=== PATIENT | female | born 1955 | race Caucasian/White ===

== ENCOUNTER → 2018-02-20 10:12 | Outpatient (CLI) | payer BC, SELFPAY ==
[2018-02-20 10:58] LABS: Add Manual Diff / Slide Review NO; Basophils Percent Auto 0.8 % (0-2); Hematocrit 42.9 % (36-46); Hemoglobin 14.4 g/dL (12.0-16.0); Lymphocytes Percent Auto 39.5 % (25-40); Mean Corpuscular HGB Conc 33.6 % (30-36); Mean Corpuscular Hemoglobin 28.9 PG (26-34); Mean Corpuscular Volume 86.2 fL (80-100); Monocytes Percent Auto 12.4 % (3-14); Neutrophils Absolute Auto 1700 /uL (3000-5900); Neutrophils Percent Auto 43.3 % (50-75); Platelet Count 208 X10^3/uL (150-400); Red Blood Cell Count 4.98 X10^6/uL (4.0-5.2); Red Cell Distribution Width 14.2 % (11.6-14.8)
[2018-02-20 11:23] LABS: Alanine Aminotransferase 30 IU/L (9-52); Albumin 4.1 g/dL (3.5-5.0); Albumin Globulin Ratio 1.3 (1.0-2.8); Alkaline Phosphatase 105 U/L (38-126); Aspartate Aminotransferase 26 IU/L (14-36); BUN Creatinine Ratio 33.3 (6-22); Bilirubin Total 1.6 mg/dL (0.2-1.3); Blood Urea Nitrogen 20 mg/dL (7-17); Calcium 9.8 mg/dL (8.4-10.2); Carbon Dioxide 28 mmol/L (22-32); Chloride 102 mmol/L (98-107); Estimated Glomerular Filt Rate > 60.0 mL/min (>60); Globulin 3.1 g/dL (1.7-4.1); Glucose 90 mg/dL (80-110); HEMOLYSIS < 15 (0-50); Potassium 4.6 mmol/L (3.4-5.1); Sodium 141 mmol/L (137-145); Total Protein 7.2 g/dL (6.3-8.2)
== END ==
PROVIDERS: PCP Family Medicine; Visit Provider Family Medicine
DX: K52.9 Noninfective gastroenteritis and colitis, unspecified (principal)
CPT/HCPCS: 36415; 80053; 85025

== ENCOUNTER → 2018-03-05 07:32 | Outpatient (CLI) | payer BC, SELFPAY ==
--- NOTE | 2018-03-05 07:34 | DI.US.S_ITS ---
PROCEDURE: US ABDOMEN COMPLETE INDICATIONS: DIARRHEA TECHNIQUE: Real-time scanning was performed of the abdominal and retroperitoneal organs, with image documentation. COMPARISON: None. FINDINGS: Liver: Liver is normal in size and homogeneous in echotexture. 2 hepatic cysts present largest measuring 2.1 cm. Gallbladder: No gallstones identified. Normal gallbladder wall. No pericholecystic fluid. Negative sonographic Vasquez sign. Biliary ducts: Intrahepatic bile ducts are non-dilated. Extrahepatic bile duct caliber measures 3.9 mm. Normal is 6-7 mm or less in diameter, or 10 mm or less post-cholecystectomy. Pancreas: Visualized portions of the pancreas are sonographically normal. Spleen: Spleen is normal in size and homogeneous in echotexture. Kidneys: Kidneys are normal in size and echotexture. Right kidney measures 10.3 cm long; left kidney measures 10.7 cm long. No hydronephrosis or nephrolithiasis. No solid masses. Aorta: Visualized aorta is normal in caliber at less than 3 cm. Iliacs: Proximal common iliac arteries are normal in caliber at less than 2.5 cm. IVC: Intrahepatic inferior vena cava is patent. Miscellaneous: No free abdominal fluid. IMPRESSION: 1. Simple hepatic cysts. No source for diarrhea identified sonographically. Dictated by: Jose Bolden [facility] Interpreted: Sonia Feliciano MD on 03/05/2018 at 8:34 Approved by: Sonia Feliciano M.D. on 03/05/2018 at 10:44
== END ==
PROVIDERS: PCP Family Medicine; Visit Provider Family Medicine
DX: R19.7 Diarrhea, unspecified (principal); K76.9 Liver disease, unspecified
CPT/HCPCS: 76700

== ENCOUNTER → 2018-03-29 14:43 | Outpatient (CLI) | payer BC, SELFPAY ==
--- NOTE | 2018-03-29 14:46 | DI.MG.S_ITS ---
BILATERAL DIGITAL SCREENING MAMMOGRAM 3D/2D WITH CAD: 03/29/2018 CLINICAL: Routine screening. Family history of breast cancer. Comparison is made to exams dated: 04/16/2015 mammogram, 02/20/2014 mammogram, and 02/06/2013 mammogram - [facility]. There are scattered fibroglandular elements in both breasts. Current study was also evaluated with a Computer Aided Detection (CAD) system. There is an asymmetry in the right breast posterior depth central to the nipple seen on the mediolateral oblique view only. There is an asymmetry in the left breast middle depth central to the nipple seen on the craniocaudal view only. No other significant masses or calcifications are seen in either breast. IMPRESSION: INCOMPLETE: NEEDS ADDITIONAL IMAGING EVALUATION The asymmetry in the right breast posterior depth central to the nipple seen on the mediolateral oblique view only is indeterminate. Additional views with possible ultrasound are recommended. The asymmetry in the left breast middle depth central to the nipple seen on the craniocaudal view only is indeterminate. Additional views with possible ultrasound are recommended. This exam was interpreted at Station ID: [id number]. NOTE: For mammograms, a report in lay terms will be sent to the patient. Approximately 15% of breast malignancies will not be visualized mammographically. In the management of a palpable breast mass, a negative mammogram must not discourage biopsy of a clinically suspicious lesion. Electronically Signed By: Bel rodriguez/radha:03/29/2018 17:16:55 letter sent: Additional Imaging Needed ACR BI-RADS Category 0: Incomplete 3340F
== END ==
PROVIDERS: PCP Family Medicine; Visit Provider Family Medicine
DX: Z12.31 Encounter for screening mammogram for malignant neoplasm of breast (principal); Z80.3 Family history of malignant neoplasm of breast
CPT/HCPCS: 77063; 77067

== ENCOUNTER → 2018-04-11 12:35 | Outpatient (CLI) | payer BC, SELFPAY ==
--- NOTE | 2018-04-11 12:39 | DI.US.S_ITS ---
ULTRASOUND OF LEFT BREAST: 04/11/2018 CLINICAL: Patient returns today to evaluate a density in the left breast. Comparison is made to exams dated: 04/11/2018 mammogram, 03/29/2018 mammogram - [facility], 04/16/2015 mammogram, and 02/20/2014 mammogram - [facility]. Color flow ultrasound of the left breast was performed. Marr scale images of the real-time examination were reviewed. Prior mammographic finding is no longer seen left breast. IMPRESSION: NEGATIVE There is no sonographic evidence of malignancy. A 1 year screening mammogram is recommended. This exam was interpreted at Station ID: [id number]. Electronically Signed By: Guy abdullahi/radha:04/11/2018 15:59:41 letter sent: Normal Exam Ultrasound BI-RADS: 1 Negative
--- NOTE | 2018-04-11 12:39 | DI.US.S_ITS ---
ULTRASOUND OF RIGHT BREAST: 04/11/2018 CLINICAL: Patient returns today to evaluate a density in the right breast. Comparison is made to exams dated: 04/11/2018 mammogram, 03/29/2018 mammogram - [facility], 04/16/2015 mammogram, and 02/20/2014 mammogram - [facility]. Color flow ultrasound of the right breast was performed. Marr scale images of the real-time examination were reviewed. There is a benign 7 mm cyst in the right breast at 7 o'clock posterior depth. This correlates with mammography findings. IMPRESSION: BENIGN There is no sonographic evidence of malignancy. The 7 mm cyst in the right breast is benign. A 1 year screening mammogram is recommended. This exam was interpreted at Station ID: [id number]. Electronically Signed By: Guy abdullahi/radha:04/11/2018 16:00:24 Ultrasound BI-RADS: 2 Benign
--- NOTE | 2018-04-11 12:39 | DI.MG.S_ITS ---
BILATERAL DIGITAL DIAGNOSTIC MAMMOGRAM 3D/2D WITH ADDITIONAL VIEWS: 04/11/2018 CLINICAL: Additional evaluation requested from prior study. Comparison is made to exams dated: 03/29/2018 mammogram - [facility], 04/16/2015 mammogram, and 02/20/2014 mammogram - [facility]. There are scattered fibroglandular elements in both breasts. Prior mammographic finding is no longer seen in the left breast. There is a 6 mm oval low density mass with a circumscribed margin in the right breast at 6 o'clock posterior depth. No other significant masses, calcifications, or other findings are seen in either breast. IMPRESSION: INCOMPLETE: NEEDS ADDITIONAL IMAGING EVALUATION The 6 mm oval low density mass in the right breast is indeterminate. Questioned left breast finding resolves. However, recommend ultrasound for further evaluation of this site as well as the right breast mass. This exam was interpreted at Station ID: [id number]. NOTE: For mammograms, a report in lay terms will be sent to the patient. Approximately 15% of breast malignancies will not be visualized mammographically. In the management of a palpable breast mass, a negative mammogram must not discourage biopsy of a clinically suspicious lesion. Electronically Signed By: Guy Navarrete M.D. cj/:04/11/2018 15:59:06 ACR BI-RADS Category 0: Incomplete 3340F
== END ==
PROVIDERS: PCP Family Medicine; Visit Provider Family Medicine
DX: R92.8 Other abnormal and inconclusive findings on diagnostic imaging of breast (principal); N60.01 Solitary cyst of right breast
CPT/HCPCS: 76642; 77066; G0279

== ENCOUNTER 2018-05-16 06:45 | Day surgery (SDC) | payer BC, SELFPAY ==
--- NOTE | 2018-05-16 | PATH_ITS ---
[facility] Accession Number: [id number] . 01 Material submitted: . PART A: ANTRUM BIOPSIES PART B: DUODENUM BIOPSIES PART C: GE JUNCTION BIOPSIES . 02 Diagnosis: A. Stomach, Antrum, Biopsies: Antral mucosa with mild chronic gastritis. No evidence of Helicobacter on H/E stain. Negative for intestinal metaplasia. Negative for dysplasia and malignancy. . B. Duodenum, Biopsies: Duodenal mucosa with no diagnostic abnormality. Negative for active inflammation, features of sprue, dysplasia or malignancy. . C. Gastroesophageal Junction, Biopsies: Squamous and columnar mucosa with no diagnostic abnormality. Negative for intestinal metaplasia. Negative for dysplasia and malignancy. [facility]/05/17/2018 . 02 Comment: Part A: An immunohistochemical stain will be performed to evaluate for Helicobacter organism and the report resulted as an addendum. . 02 Electronically signed: . Lizzy Hemphill MD, Pathologist NPI- [id number] . 01 Gross description: . Received three formalin-filled containers, each labeled with the patient's name: . A. In a container labeled antrum, the specimen consists of two 0.2-0.3 cm portions of tissue, entirely submitted in cassette A. B. In a container labeled duodenum, the specimen consists of a 0.3 cm portion of tissue, entirely submitted in cassette B. C. In a container labeled GE junction, the specimen consists of two 0.1-0.2 cm portions of tissue, entirely submitted in cassette C. ([id number]) /FRR . 02 Pathologist provided ICD-10: R10.9 . 02 CPT . 195183, 078609, [id number], [id number] Performed at: [address], [place], [place] [id number] MD Mil Mata MD Phone: [phone] Performed at: 02 [facility] [id number] [place] [id number] MD Edmond Mejia MD Phone: [phone]
[2018-05-16 07:17] VITALS: BP 144/74; PULSE 86; RESP 16; TEMP 36.4; O2SAT 100
[2018-05-16 07:30] VITALS: BMI 21.1
[2018-05-16] MEDS: SODIUM CHLORIDE 0.9% 1,000 ML 200 ML IV (07:33)
[2018-05-16] MEDS: LIDOCAINE 4% SOLN 50 ML 20 ML TOP (08:34)
[2018-05-16] MEDS: TETRACAINE/BENZOCAINE/BUTAMBEN (CETACAINE) BOTTLE 1 SPRAY TOP (08:35)
[2018-05-16] MEDS: fentaNYL 250 MCG/5 ML INJ IV (08:57)
[2018-05-16] MEDS: MIDAZOLAM 5 MG/5 ML VIAL IV (08:57)
--- NOTE | 2018-05-16 08:59 | PM.HP.1 ---
History of Present Illness Date Patient Seen: 05/16/18 Time Patient Seen: 08:59 Chief complaint: egd colonoscopy [id number] Narrative: Pleasant 62-year-old lady presents today for EGD and colonoscopy. She reports that her health is not changed since our visit in the office approximately 6 weeks ago. She denies any blood in her stool. She denies any changes in her food tolerance . She reports that she remembers all the risks and benefits that we discussed Patient History Medical History Arthritis (Chronic ~2015) Dermatitis (Chronic ~2014) Eczema (Chronic) Graves disease (Chronic ~1991) Hay fever (Chronic) Headache (Chronic ~2002) History of painful menstruation (Chronic ~1968) Hypothyroidism (Chronic ~2002) Lumbar disc disease (Chronic ~2015) Migraines (Chronic ~2002) Peptic ulcer disease (Chronic ~1994) Recurrent sinusitis (Chronic) Rosacea (Chronic) Spinal stenosis (Chronic) Chicken pox (Resolved) Measles (Resolved) Family & Social History Family History: Reviewed 05/16/18 by Molly Hummel MD Social History: household members none lives independently Yes caregiver/support person No Tobacco & Substance use: Smoking Status Former smoker alcohol intake current Meds Home Medications Medication Instructions Recorded Confirmed Type levothyroxine 112 mcg tablet 112 mcg PO DAILY 02/20/18 02/20/18 History ascorbic acid (vitamin C) ER 500 500 mg PO DAILY 03/28/18 03/28/18 History mg capsule,extended release omega-3 fatty acids 1,000 mg 1,000 mg PO DAILY 03/28/18 03/28/18 History capsule vitamin B complex PO DAILY 03/28/18 03/28/18 History vitamin E (dl, acetate) PO DAILY 03/28/18 03/28/18 History liothyronine 5 mcg tablet 15 mcg PO ONCE #270 tab 05/02/18 Rx Allergies Allergy/AdvReac Type Severity Reaction Status Date / Time Sulfa (Sulfonamide Allergy Mild Rash Verified 05/16/18 07:16 Antibiotics) Review of Systems Review of Systems All systems reviewed & are unremarkable except as noted in HPI and below Exam Vital Signs (past 8 hours): - 05/16/18 07:17 Temperature 97.6 F Pulse Rate 86 Respiratory Rate 16 Blood Pressure 144/74 H Pulse Oximetry 100 Oxygen Delivery Method Room Air Narrative Exam Narrative: Thin lady in no obvious distress HEENT: Normocephalic and atraumatic, pupils equal round reactive to light accommodation with anicteric sclera Lungs: Clear to auscultation bilaterally Heart: Regular rate and rhythm without murmur rub or gallop Abdomen: Soft, nontender, active bowel sounds Extremities: Warm and well perfused without edema Assessment & Plan Plan: Assessment/Plan Narrative: Pleasant 62-year-old lady who is never had a colonoscopy. Additionally she has multiple food intolerance is and symptoms of irritable bowel syndrome. She also has a family history of celiac sprue. We have discussed the risks and benefits and colonoscopy and EGD and the patient expressed desire to have the procedures today.
--- NOTE | 2018-05-16 09:01 | PM.OP.1 ---
Operative Date/Time/Diagnoses Date of procedure: 05/16/18 Time of procedure: 09:01 Pre-op diagnosis: Abdominal pain Colon screening Post-op diagnosis: same Procedure & Clinicians Procedure: EGD with biopsies and colonoscopy to the cecum Same procedure as scheduled: Yes Indications: No prior colonoscopy Surgeon: Molly Hummel Click Yes if Unassisted: Yes Anesthesia Type: Sedation (Versed 8 mg; fentanyl 250 mcg) Operative Notes Findings: 1. Normal-appearing duodenum without lesions 2. Antrum with retained gastric contents in the form of liquid and solid material. The mucosa of the antrum was normal and without lesions 3. No significant hiatal hernia. GE junction at 40 cm from the incisors 4. Very regular appearing Z-line without gross abnormality 5. Excellent prep 6. No polyps or mass lesions 7. No av malformations 8. Minimal diverticulosis with just a few small pockets limited to the sigmoid region 9. Grade 1 internal hemorrhoids Estimated Blood Loss (mL): 1 Procedure in detail: After obtaining informed consent, the patient was brought to the GI suite and placed in the left lateral decubitus position on the examination table. After placement of appropriate monitors, the patient was given incremental doses of Versed and Fentanyl until an appropriate level of sedation was achieved. A time out was held per SCOAP protocol. We began with EGD. A bite block was gently placed between the patient's teeth. The endoscope was lubricated and then passed into the patient's posterior oropharynx. The esophagus was cannulated under direct vision and the scope was passed to the second portion of the duodenum without difficulty. The scope was then withdrawn with careful examination of all areas of the upper GI tract and mucosa. In the stomach, the instrument was retroflexed and the GE junction examined. The scope was straightened and the procedure continued with examination of the remainder of the upper GI tract. Findings are noted above. Air was aspirated from the stomach and the endoscope gently removed from the esophagus. The examination table was turned and we continued with the colonoscopy. A digital rectal examination was performed and did not reveal any masses or obstructing lesions. The colonoscope was gently passed into the patient's anus and the entire colon navigated to the level of the cecum with minimal difficulty. Once in the cecum, the scope was withdrawn being sure to go before and beyond all mucosal folds and prominences and get an excellent examination. The findings are noted above. At the level of the rectal vault, the scope was retroflexed and the internal anal canal was examined. The scope was straightened and air aspirated from the colon. The instrument was removed from the patient's body and the procedure was concluded. The patient was allowed to awaken from sedation without difficulty and taken to the post-anesthesia care unit in good condition. Total sedation time 24 min Total withdrawal time 8 min 35 sec Complications: none Condition: stable Disposition: PACU Plan for aftercare: 1. Discharge to home 2. We will contact you with pathology results and other recommendations 3. Plan for next colonoscopy in 10 years or as clinically indicated
[2018-05-16 09:02] VITALS: BP 116/68; PULSE 92; RESP 11; TEMP 36.8; O2SAT 100
[2018-05-16 09:07] VITALS: BP 106/64; PULSE 89; RESP 13; O2SAT 100
[2018-05-16 09:12] VITALS: BP 121/61; PULSE 92; RESP 15; O2SAT 95
[2018-05-16 09:17] VITALS: BP 111/62; PULSE 86; RESP 16; TEMP 36.7; O2SAT 98
[2018-05-16 09:28] VITALS: BP 115/73; PULSE 82; RESP 14; TEMP 36.8; O2SAT 97
[2018-05-21 12:06] LABS: Alanine Aminotransferase 26 IU/L (9-52)
[2018-05-21 16:11] LABS: Hepatitis B Surface Antigen NEGATIVE s/c (NEGATIVE)
[2018-05-21 16:28] LABS: HIV 1 and 2 Antibody NEGATIVE (NEGATIVE); Hep C Virus Ab w/Reflex Quant NEGATIVE s/c (NEGATIVE)
[2018-05-22 14:59] LABS: Hepatitis B Surf Ab Qualitativ Nonreactive (Nonreactive)
== END 2018-05-16 09:42 | disposition home or self-care (01) ==
PROVIDERS: PCP Family Medicine; Visit Provider Surgery
PROC: 0DJ08ZZ Inspection of Upper Intestinal Tract, Via Natural or Artificial Opening Endoscopic (ICD-10-PCS; CPT 43235; principal; 2018-05-16 07:45)
PROC: 0DJD8ZZ Inspection of Lower Intestinal Tract, Via Natural or Artificial Opening Endoscopic (ICD-10-PCS; CPT 45378; 2018-05-16 07:45)
DX: K57.33 Diverticulitis of large intestine without perforation or abscess with bleeding (principal); K64.0 First degree hemorrhoids
CPT/HCPCS: 43239; 45378; 84460; 86703; 86706; 86803; 87340; 99152; 99153; J2250; J3010

== ENCOUNTER → 2018-05-28 09:10 | Outpatient (CLI) | payer BC, SELFPAY ==
--- NOTE | 2018-05-28 09:11 | DI.RAD.S_ITS ---
PROCEDURE: FL UPPER GI W AIR INDICATIONS: Abdominal pain and bloating COMPARISON: [facility], , BREAST RT LIMITED, 04/11/2018, 13:51. FINDINGS: KUB: Preprocedural psychological operations officer film demonstrates a normal bowel gas pattern. No suspicious abdominal calcifications. Visualized solid organ contours appear normal. Bony structures appear unremarkable. Esophagus: Esophageal mucosa is normal on air-contrast views. On single-contrast views, there is normal esophageal peristalsis. No strictures, extrinsic mass effects, or diverticula. No hiatal hernia or elicited gastroesophageal reflux. There is normal transit of a calibrated barium tablet through the esophagus. Stomach: The stomach is normally distensible, with normal rugal fold thickness. No mucosal masses or ulcers. Pylorus and duodenal bulb appear normal in morphology. Duodenal folds are normal in thickness as well. IMPRESSION: Normal upper GI exam. Dictated by: Sonia Feliciano M.D. on 05/28/2018 at 10:40 Approved by: Sonia Feliciano M.D. on 05/28/2018 at 10:41
== END ==
PROVIDERS: PCP Family Medicine; Visit Provider Surgery
DX: R10.9 Unspecified abdominal pain (principal); R14.0 Abdominal distension (gaseous)
CPT/HCPCS: 74247

== ENCOUNTER → 2019-07-07 13:14 | Outpatient (CLI) | payer BC, SELFPAY | PROVIDERS: PCP Family Medicine; Visit Provider Family Medicine | DX: M85.851 Other specified disorders of bone density and structure, right thigh (principal); Z78.0 Asymptomatic menopausal state; E03.8 Other specified hypothyroidism; E06.3 Autoimmune thyroiditis | CPT/HCPCS: 77080 ==